=== PATIENT | female | born 1965 | race Caucasian/White ===

== ENCOUNTER → 2017-04-02 | Outpatient (CLI) | payer OTHER | END | disposition home or self-care (01) | LOC: PETCFH 07:44 | PROVIDERS: ATTEND Internal Medicine Critical Care Medicine | DX: R91.8 Other nonspecific abnormal finding of lung field (principal) | CPT/HCPCS: 78815; A9552 ==

== ENCOUNTER → 2017-12-03 | Outpatient (CLI) | payer OTHER ==
[~2017-12-03] MED LIST: GADOXETATE DISODIUM 2.5 MMOL/10 ML ONE
== END | disposition home or self-care (01) ==
LOC: CFH 13:07
PROVIDERS: ATTEND Surgery
DX: K76.89 Other specified diseases of liver (principal); R91.1 Solitary pulmonary nodule; R59.1 Generalized enlarged lymph nodes; D13.4 Benign neoplasm of liver
CPT/HCPCS: 74183; A9581

== ENCOUNTER → 2019-02-03 | Outpatient (CLI) | payer OTHER | END | disposition home or self-care (01) | LOC: CFH 12:34 | PROVIDERS: ATTEND Family Medicine | DX: Z12.31 Encounter for screening mammogram for malignant neoplasm of breast (principal) | CPT/HCPCS: 77067 ==